=== PATIENT | male | born 1980 ===

== ENCOUNTER 2019-11-11 09:26 | Outpatient (CLI) | payer OTHER, SELFPAY | END 2019-11-11 09:27 | disposition home or self-care (01) | DX: R91.1 Solitary pulmonary nodule (principal); R56.9 Unspecified convulsions; H50.05 Alternating esotropia; K59.00 Constipation, unspecified; E78.00 Pure hypercholesterolemia, unspecified; F39 Unspecified mood [affective] disorder | CPT/HCPCS: 92555; 92567; 92579; 92587 ==

== ENCOUNTER 2021-01-10 13:03 | Outpatient (CLI) | payer OTHER, SELFPAY | END 2021-01-10 13:04 | disposition home or self-care (01) | DX: H91.93 Unspecified hearing loss, bilateral (principal) | CPT/HCPCS: 92555; 92567; 92579; 92587 ==